=== PATIENT | male | born 1960 | race Caucasian/White ===

== ENCOUNTER 2016-09-14 09:18 | Inpatient (IN) | payer OTHER ==
[~2016-09-14] VITALS: Ht 165.1 cm; Wt 128.5 kg
[2016-09-14 12:02] LABS: MCHC 33.1 G/DL (30.0-36.0); MCV 90.6 FL (86-99); MEAN PLAT.VOLUME 10.6 uM^3 (9.0-12.4); PLATELET COUNT 271 K/uL (156-360); RBC DIS.WIDTH-CV 12.6 % (11.8-14.6); RBC DIS.WIDTH-SD 41.7 % (39-53); RED BLOOD COUNT 5.63 M/uL (4.00-5.50)
[2016-09-14 12:09] LABS: CHLORIDE 99 mEq/L (99-109); POTASSIUM 4.1 mEq/L (3.7-5.4); SODIUM 137 mEq/L (136-147)
[2016-09-14 12:11] LABS: GLUCOSE 224 mg/dL (70-99)
[2016-09-14 12:12] LABS: ANION GAP 11 MEQ/L (2-14)
[2016-09-14 12:14] LABS: GFR ESTIMATE (CALCULATED) > 59 mL/min/
[2016-09-14 12:15] LABS: UREA NITROGEN (BUN) 29 mg/dL (9-23)
[2016-09-14] MEDS ORDERED: JANUVIA100 MG PO (17:12)
[2016-09-14] MEDS ORDERED: METFORMIN HCL1000 MG PO (17:12)
[2016-09-14] MEDS ORDERED: LISINOPRIL20 MG PO (17:12)
[2016-09-14] MEDS ORDERED: MONTELUKAST SOD10 MG PO (17:12)
[2016-09-14] MEDS ORDERED: RANITIDINE HCL150 MG PO (17:13)
[2016-09-14] MEDS ORDERED: ATROVENT H200 INHALA IH (17:14)
[2016-09-14] MEDS ORDERED: OMEPRAZOLE40 M1 PO (17:14)
[2016-09-14] MEDS ORDERED: PRAVASTATIN SOD20 MG PO (17:15)
[2016-09-14] MEDS ORDERED: TRAMADOL HCL50 MG PO (17:15)
[2016-09-14] MEDS ORDERED: NABUMETONE500 MG PO (17:15)
[2016-09-14] MEDS ORDERED: ASPIR-LOW81 MG PO (17:16)
[2016-09-14] MEDS ORDERED: GABAPENTIN800 MG PO (17:16)
[2016-09-14] MEDS ORDERED: AFRIN,GENASAL D15 ML BOTH NARES (17:17)
[2016-09-14] MEDS ORDERED: ADVAIR 250/501 DISK IH (17:17)
[2016-09-14 18:04] VITALS: BP 115/56
[2016-09-14 20:25] VITALS: BP 116/73
[2016-09-14 21:44] LABS: POINT-OF-CARE METER ID UU13113725
[2016-09-14 23:40] VITALS: BP 106/59
[2016-09-15 04:00] VITALS: BP 129/66
[2016-09-15 07:08] LABS: ANION GAP 8 MEQ/L (2-14); CHLORIDE 102 MEQ/L (99-109); GFR ESTIMATE (CALCULATED) > 59 mL/min/; GLUCOSE 121 mg/dL (70-99); POTASSIUM 3.8 MEQ/L (3.7-5.4); SAMPLE HEMOLYSIS CHECK 0; SAMPLE ICTERIC CHECK 0; SAMPLE LIPEMIA CHECK 0; SODIUM 137 MEQ/L (136-147); UREA NITROGEN (BUN) 21 mg/dL (9-23)
[2016-09-15 07:12] LABS: HEMATOCRIT 39.9 % (38.0-50.0); MCHC 33.1 G/DL (30.0-36.0); MCV 90.7 FL (86-99); MEAN PLAT.VOLUME 11.1 uM^3 (9.0-12.4); PLATELET COUNT 204 K/uL (156-360); RBC DIS.WIDTH-CV 12.7 % (11.8-14.6); RBC DIS.WIDTH-SD 41.9 % (39-53); WHITE BLOOD COUNT 13.9 K/uL (4.1-10.2)
[2016-09-15 07:33] VITALS: BP 118/65
[2016-09-15 11:24] LABS: POINT-OF-CARE METER ID UU13113725
[2016-09-15 16:22] LABS: POINT-OF-CARE METER ID UU13113725
[2016-09-15 16:30] VITALS: BP 119/75
[2016-09-15 23:01] VITALS: BP 112/55
[2016-09-16 07:10] LABS: EOSINOPHIL COUNT 0.1 K/uL (0-0.3); IMMATURE GRANULOCYTE (%) 0.8 % (0.0-0.7); IMMATURE GRANULOCYTE COUNT 0.1 K/uL; INSTRUMENT ABS NEUTROPHIL CT 7.5 K/uL; LYMPHOCYTE COUNT 0.7 K/uL (1.0-2.8); MCH 30.8 PG (29.0-34.0); MCHC 33.8 G/DL (30.0-36.0); MCV 91.1 FL (86-99); MEAN PLAT.VOLUME 11.2 uM^3 (9.0-12.4); MONOCYTE (%) 7.5 % (3-12); MONOCYTE COUNT 0.7 K/uL (0-0.8); NEUTROPHIL (%) 82.6 % (45-76); NEUTROPHIL COUNT 7.5 K/uL (1.8-6.4); PLATELET COUNT 193 K/uL (156-360); RBC DIS.WIDTH-SD 42.5 % (39-53); RED BLOOD COUNT 4.28 M/uL (4.00-5.50); WHITE BLOOD COUNT 9.1 K/uL (4.1-10.2)
[2016-09-16 07:36] LABS: ANION GAP 9 MEQ/L (2-14); CHLORIDE 102 MEQ/L (99-109); GFR ESTIMATE (CALCULATED) > 59 mL/min/; GLUCOSE 170 mg/dL (70-99); POTASSIUM 3.7 MEQ/L (3.7-5.4); SAMPLE HEMOLYSIS CHECK 0; SAMPLE ICTERIC CHECK 0; SAMPLE LIPEMIA CHECK 0; SODIUM 139 MEQ/L (136-147); UREA NITROGEN (BUN) 12 mg/dL (9-23)
[2016-09-16 07:49] VITALS: BP 110/65
[2016-09-16 11:25] LABS: POINT-OF-CARE METER ID UU13113725
[2016-09-16 16:17] VITALS: BP 111/62
[2016-09-16 16:53] LABS: POINT-OF-CARE METER ID UU13113725
[2016-09-17 00:40] VITALS: BP 97/62
[2016-09-17 06:35] LABS: EOSINOPHIL (%) 1.8 % (0-5); EOSINOPHIL COUNT 0.1 K/uL (0-0.3); HEMATOCRIT 38.9 % (38.0-50.0); IMMATURE GRANULOCYTE (%) 0.8 % (0.0-0.7); IMMATURE GRANULOCYTE COUNT 0.1 K/uL; LYMPHOCYTE COUNT 0.9 K/uL (1.0-2.8); MCH 31.1 PG (29.0-34.0); MCHC 34.2 G/DL (30.0-36.0); MCV 91.1 FL (86-99); MEAN PLAT.VOLUME 11.1 uM^3 (9.0-12.4); MONOCYTE (%) 7.6 % (3-12); MONOCYTE COUNT 0.6 K/uL (0-0.8); NEUTROPHIL (%) 77.6 % (45-76); PLATELET COUNT 216 K/uL (156-360); RBC DIS.WIDTH-CV 12.9 % (11.8-14.6); RBC DIS.WIDTH-SD 43.1 % (39-53); RED BLOOD COUNT 4.27 M/uL (4.00-5.50); WHITE BLOOD COUNT 7.7 K/uL (4.1-10.2)
[2016-09-17 07:11] LABS: ANION GAP 7 MEQ/L (2-14); CHLORIDE 103 MEQ/L (99-109); GFR ESTIMATE (CALCULATED) > 59 mL/min/; GLUCOSE 199 mg/dL (70-99); POTASSIUM 3.7 MEQ/L (3.7-5.4); SAMPLE HEMOLYSIS CHECK 0; SAMPLE ICTERIC CHECK 0; SAMPLE LIPEMIA CHECK 0; SODIUM 138 MEQ/L (136-147); UREA NITROGEN (BUN) 14 mg/dL (9-23)
[2016-09-17 07:48] VITALS: BP 116/71
[2016-09-17 11:30] LABS: POINT-OF-CARE METER ID UU13113725
[2016-09-17] MEDS ORDERED: AUGMENTIN875 MG PO (15:10)
== END 2016-09-17 16:26 | disposition home or self-care (01) | DRG 603 ==
LOC: EME 09:18 → 5EAST 15:40 → EDOF 15:40 → CANRESERV 15:44 → ENRESERV 15:44 → 5EAST 17:51
PROVIDERS: Internal Medicine; Nurse Practitioner Family
PROC: 5A09357 Assistance with Respiratory Ventilation, Less than 24 Consecutive Hours, Continuous Positive Airway Pressure (ICD-10-PCS; principal; 2016-09-14)
DX: L03.116 Cellulitis of left lower limb (principal); Z68.42 Body mass index [BMI] 45.0-49.9, adult; E66.01 Morbid (severe) obesity due to excess calories; E86.0 Dehydration; E11.65 Type 2 diabetes mellitus with hyperglycemia; I11.0 Hypertensive heart disease with heart failure; I50.9 Heart failure, unspecified; J44.9 Chronic obstructive pulmonary disease, unspecified; G47.33 Obstructive sleep apnea (adult) (pediatric); K21.0 Gastro-esophageal reflux disease with esophagitis; E78.5 Hyperlipidemia, unspecified; I89.0 Lymphedema, not elsewhere classified; E78.00 Pure hypercholesterolemia, unspecified; Z87.891 Personal history of nicotine dependence
CPT/HCPCS: 80048; 80202; 82948; 83605; 85025; 85027; 87040; 93971; 94640; 94640 76; 94760; 99202; 99281; 99285; J0295; J1650; J1815; J1885; J3370; J7030; J7050